=== PATIENT | female | born 1990 | race Caucasian/White ===

== ENCOUNTER 2020-10-07 10:56 | Outpatient (CLI) | payer OTHER, SELFPAY | END 2020-10-07 10:57 | disposition home or self-care (01) | LOC: ANHCOVIDVC 10:57 | PROVIDERS: PCP Internal Medicine | DX: Z23 Encounter for immunization (principal) | CPT/HCPCS: 0001A; 91300 ==

== ENCOUNTER 2020-10-28 10:02 | Outpatient (CLI) | payer OTHER, SELFPAY | END 2020-10-28 10:03 | disposition home or self-care (01) | LOC: ANHCOVIDVC 10:02 | PROVIDERS: PCP Internal Medicine | DX: Z23 Encounter for immunization (principal) | CPT/HCPCS: 0002A; 91300 ==

== ENCOUNTER 2024-08-11 11:14 | Emergency (ER) | payer OTHER, SELFPAY ==
[2024-08-11 11:36] VITALS: BP 142/91; PULSE 98; RESP 16; TEMP 36.5; O2SAT 99
[2024-08-11 11:39] LABS: EDUAAPPEAR Cloudy; EDUABILI Negative (Negative); EDUABLOOD 3+ (Negative); EDUACOLOR1 Yellow; EDUAGLUCOSE Negative (Negative); EDUAKETONE Negative (Negative); EDUALEUKO 3+ (Negative); EDUANITRATE Negative (Negative); EDUAPROTEIN 1+ (Negative); EDUAUROBILI 0.2
--- NOTE | 2024-08-11 11:50 | ED.FEMALEGU ---
HPI - Female Genitourinary General Chief complaint: Urogenital-Female Stated complaint: urinary issue Time Seen by Provider: 08/11/24 11:50 Source: patient Mode of arrival: ambulatory Limitations: no limitations History of Present Illness HPI Narrative: 34-year-old female presents with complaint of urinary frequency, urgency, low back pain for 2-3 days. Afebrile. Denies nausea vomiting. All systems reviewed and negative except as noted above. Related Data Home Medications ?Medication ?Instructions ?Recorded ?Confirmed ?Last Taken ?Type glycopyrrolate 2 mg tablet 2 mg PO BID 05/29/24 08/11/24 Unknown History levonorgestrel-ethinyl estradiol 1 tablet PO DAILY 05/29/24 08/11/24 Unknown History 0.1 mg-20 mcg tablet (Lessina) metformin 500 mg tablet 500 mg PO BID 05/29/24 08/11/24 Unknown History spironolactone 100 mg tablet 100 mg PO DAILY 05/29/24 08/11/24 Unknown History Allergies Allergy/AdvReac Type Severity Reaction Status Date / Time No Known Allergies Allergy Unverified 08/11/24 11:16 Review of Systems Review of Systems: CONSTITUTIONAL: Denies fever, chills, or sweats. EYES: Denies visual changes, redness, or discharge. ENT: Denies rhinorrhea, congestion, sore throat, or otalgia. CARDIOVASCULAR: Denies chest pain, palpitations, or edema. RESPIRATORY: Denies cough or dyspnea. GASTROINTESTINAL: Denies abdominal pain, nausea, vomiting, or diarrhea. GENITOURINARY: Reports dysuria, frequency, urgency. Denies hematuria. SKIN: Denies rash or itching. MUSCULOSKELETAL: Denies back pain, joint pain, or myalgia. NEUROLOGIC: Denies headache, numbness, or weakness. PSYCHIATRIC: Denies anxiety or depression. All other systems reviewed are negative, except as documented in HPI. [facility] Past Medical History Medical History Pre-diabetes Hyperthyroidism PCOS (polycystic ovarian syndrome) Surgical History Surgical History History of splenectomy History of tonsillectomy Social History Social History Smoking status: Current every day smoker Tobacco type: e-cigarettes/vaping Alcohol intake: never Substance use: current Substance use type: marijuana Do You Feel Safe in your Home?: Yes Lack of Transportation: No Lack of Food: Never True Current Housing: I Have Housing Concerned About Future Housing: No Difficulty Paying Gas/Electric Bills: No Difficulty Paying for Meds: No Currently Unemployed: YES Education: Associate Degree Difficulty w/ Childcare or Family Care: No Comments At time of signature, agree with nursing past medical, surgical, social and family history. There is no relevant family history pertinent to the presenting complaint. Exam Narrative: GENERAL: This is a well-nourished, well-developed patient, in no apparent distress. HEAD: normocephalic, atraumatic. EYES: PERRL. Sclera clear/white. Vision is grossly intact. EARS: External ears normal NOSE: External nose normal NECK: Neck supple, non-tender without lymphadenopathy, masses or thyromegaly. CARDIOVASCULAR: Regular rate and rhythm without murmurs, gallops, or rubs. RESPIRATORY: Clear to auscultation. Breath sounds equal bilaterally. No wheezes, rales, or rhonchi. SKIN: warm, Dry, intact with no suspicious lesions or rash, good texture and turgor. NEURO: awake, alert, and oriented to person, place and time. There were no obvious focal neurologic abnormalities. EXTREMITIES: No joint tenderness, effusion, or edema noted. Course Course Level of Care: Express Care Visit Vital Signs Vital signs: Vital Signs Temperature 36.5 C 08/11/24 11:36 Pulse Rate 98 08/11/24 11:36 Respiratory Rate 16 08/11/24 11:36 Blood Pressure 142/91 H 08/11/24 11:36 Pulse Oximetry 99 08/11/24 11:36 Oxygen Delivery Room Air 08/11/24 11:36 Temperature 36.5 C 08/11/24 11:36 Pulse Rate 98 08/11/24 11:36 Respiratory Rate 16 08/11/24 11:36 Blood Pressure 142/91 H 08/11/24 11:36 Pulse Oximetry 99 08/11/24 11:36 Oxygen Delivery Room Air 08/11/24 11:36 reviewed MDM - Female Genitourinary MDM Narrative Medical decision making narrative: urinalysis positive leukocytes, positive blood. Will treat patient with antibiotic due to urinary symptoms. Patient is alert, nontoxic. Urine culture ordered. Please be advised this is a medical document. It is intended for zxdd-[id number] communication. It is written in medical language and may contain unfamiliar abbreviations or verbiage. Medical documents are intended to carry relevant information, facts as evident, and the clinical opinion of the practitioner at the time of the encounter. This report may have been done utilizing a voice recognition system. Attempts have been made to correct errors. However, there may be uncorrected grammatical, spelling, and recognition errors present. The file time of this note does not necessarily represent the time of service. Lab Data Labs: Lab Results 08/11/24 Range/Units 11:35 POC Urine Color Yellow POC Urine Clarity Cloudy POC Urine pH 6.0 POC Ur Specif [place] 1.010 POC Urine Protein 1+ (Negative) POC Ur Glucose (UA) Negative (Negative) POC Urine Ketones Negative (Negative) POC Urine Blood 3+ (Negative) POC Urine Nitrite Negative (Negative) POC Urine Bilirubin Negative (Negative) POC Urine Urobilinogen 0.2 POC U Leukocyte Esteras 3+ (Negative) Discharge Plan Discharge Clinical Impression: Urinary tract infection Qualifiers: Urinary tract infection type: site unspecified Hematuria presence: with hematuria Qualified Code(s): N39.0 - Urinary tract infection, site not specified Patient Disposition: Home, Self-Care Condition: Stable Instructions: Antibiotic Form, Urinary Tract Infection in Women (ED) Additional Instructions: take antibiotic as prescribed until gone. May take [id number] azo to treat urinary symptoms. Take as directed on packaging. Drink at least 64 oz water a day. Follow-up with your doctor if symptoms are not improving. Patient Language: Lao Prescriptions: New amoxicillin-pot clavulanate [Augmentin] 500-125 mg tablet 1 tablet PO BID 5 Days Qty: 10 0RF No Action metformin 500 mg tablet 500 mg PO BID levonorgestrel-ethinyl estrad [Lessina] 0.1-20 mg-mcg tablet 1 tablet PO DAILY spironolactone 100 mg tablet 100 mg PO DAILY glycopyrrolate 2 mg tablet 2 mg PO BID Follow-up/Referrals: PHYSICIAN,STRIPPING MACHINE OPERATOR [Primary Care Provider] - Time of Disposition: 11:54
== END 2024-08-11 12:00 | disposition home or self-care (01) ==
PROVIDERS: Emergency Provider Nurse Practitioner Family
DX: N39.0 Urinary tract infection, site not specified (principal); E05.90 Thyrotoxicosis, unspecified without thyrotoxic crisis or storm; R73.03 Prediabetes; E28.2 Polycystic ovarian syndrome; F17.290 Nicotine dependence, other tobacco product, uncomplicated; F12.90 Cannabis use, unspecified, uncomplicated
CPT/HCPCS: 81003; 87086; 99213; G0463

== ENCOUNTER 2024-11-09 09:00 | Outpatient (RCR) | payer OTHER, SELFPAY ==
--- NOTE | 2024-10-10 10:01 | OPREHPOC ---
Outpatient Therapy Plan of Care This is a Multidisciplinary Plan of Care that may contain components documented by all disciplines (PT, OT, and ST.) PT Problem 1 PT Problem #1 Knowledge Deficit PT Goal 1 Goal / Goal Update *independent with HEP Target Visit 8 PT Problem 2 PT Problem #2 Pain PT Goal 1 Goal / Goal Update * pt report pain at worst rating of L knee 4/10 Target Visit 8 PT Goal 2 Goal / Goal Update * pt report tolerance with standing/walking of 2 hours Target Visit 8 PT Problem 3 PT Problem #3 Impaired Flexibility PT Goal 1 Goal / Goal Update *increase flexibility of anterior hip/quads to decrease machine puller over patella prone knee flexion to 120' 1* R 2* L Target Visit 8 PT Problem 4 PT Problem #4 Impaired Strength PT Goal 1 Goal / Goal Update increase strength of R and L hip adduction to 5/ 5 improve patellar tracking Target Visit 8
--- NOTE | 2024-10-10 10:01 | PTOPEVAL1 ---
Assessment and note entered by Lizeth Braga, PT Evaluation Information Assessment Status Evaluation ICD-10 Condition Codes (PT) Pain in right knee M25.561,Pain in left knee M25. 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; had injections bilateral knees-increased pain started taking meloxicam--helping pain; wants her to have MRI, but have to have therapy first activity: not working outside of home; have been doing [employer] water exercises--made little worse; independent with home and self care tasks, require rest breaks about 1-2 hours of activity; Reported Pain Level Pain Score Self Report Additional Pain Score Comments pain range of the past week: L 0-7/10 and R 0-3/ 10; annoying pain, pops in knee and if get knee cap to move right- feels better increase pain: activity/walking ~ 1-2 hours decrease pain: sit, meloxicam, heat, ice walking down stairs at home, that are narrow, turn legs out Assessment PT Clinical Summary Katie has the diagnosis of R and L knee pain. She has chronic issues with bilateral knee pain and has never had PT treatments. LE functional scale self rating of 44% limitation in activity level. Reported time of walking/standing of 1-2 hours on her feet. She has tried more fitness exercises and aquatic classes, but knees more painful after. The meloxicam has helped decrease her pain. With the evaluation: she has good strength of bilateral hips and knees, with slight tightness of anterior hip/quad muscles; lateral tracking of both patella and stands with hyper extension of knees. Skilled PT services are indicated for treatment of patellar-femoral pain: improve patellar tracking with improve flexibility of anterior hip/quads, increase hip adduction strength, modalities PRN and education for HEP and pain management. Plan of Care Interventions Electrical Stimulation,Hot Pack/Cold Pack,Manual Therapy,Neuro Re-education,Patient/Caregiver Education,Therapeutic Activities,Therapeutic Exercise,Ultrasound,Other Other Interventions taping PT Services Indicated Yes Treatment Frequency and 1-2x/wk for 8 visits Duration These treatments will address the objective and functional deficits as defined above. The patient will be advanced safely and appropriately in order for the patient to progress towards his/her prior level of function. Additional exercises will be introduced and as well as a comprehensive home exercise program upon discharge, if needed, to ensure carryover of functional gains achieved in the clinic. This treatment plan has been reviewed and agreement upon by the patient.
--- NOTE | 2024-11-09 09:35 | OPREHPOC ---
Outpatient Therapy Plan of Care This is a Multidisciplinary Plan of Care that may contain components documented by all disciplines (PT, OT, and ST.) PT Problem 1 PT Problem #1 Knowledge Deficit PT Goal 1 Goal / Goal Update *independent with HEP 11-09-24 d/c goal met Target Visit 8 Progress Met PT Problem 2 PT Problem #2 Pain PT Goal 1 Goal / Goal Update * pt report pain at worst rating of L knee 4/10 11-09-24 d/c goal not met, 6/10 at worst Target Visit 8 Progress Not Met PT Goal 2 Goal / Goal Update * pt report tolerance with standing/walking of 2 hours 11-09-24 d/c goal met Target Visit 8 Progress Met PT Problem 3 PT Problem #3 Impaired Flexibility PT Goal 1 Goal / Goal Update *increase flexibility of anterior hip/quads to decrease machine assembler for puller over patella prone knee flexion to 120' 1* R 2* L 11-09-24 d/c goal met Target Visit 8 Progress Met PT Problem 4 PT Problem #4 Impaired Strength PT Goal 1 Goal / Goal Update increase strength of R and L hip adduction to 5/ 5 improve patellar tracking 11-09-24 d/c goal met Target Visit 8 Progress Met
--- NOTE | 2024-11-09 09:35 | PTOPDC ---
Assessment and note entered by Lizeth Braga, PT Assessment Status Discharge ICD-10 Condition Codes (PT) Pain in right knee M25.561,Pain in left knee M25. 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; had injections bilateral knees-increased pain started taking meloxicam--helping pain; wants her to have MRI, but have to have therapy first activity: not working outside of home; have been doing [employer] water exercises--made little worse; independent with home and self care tasks, require rest breaks about 1-2 hours of activity; Reported Pain Level Pain Score Self Report Additional Pain Score Comments pain range in the past week 0-6/10 of L medial knee- popping; R knee no pain; increase pain: stairs reported tolerance with standing/ walking 2-3 hours decrease pain: leukotape, avoid hyper extending my knees/locking out knees; meloxicam Assessment PT Clinical Summary Katie has received 8 PT sessions. She has improved in all areas: pain rating R knee 0/10 and L 0-6/10; self assessment with LE functional scale of 36% limitation in activity; increase flexibility of bilateral anterior hip and quad to 120' with prone knee flexion; increase strength of hips and knees; education completed for HEP and body posture. The goals were partially met. Discharge PT. She is to continue with her HEP. Plan of Care PT Services Indicated No
== END 2024-11-09 12:29 | disposition home or self-care (01) ==
LOC: ANHPT 09:00
PROVIDERS: PCP Physician Assistant
DX: M25.562 Pain in left knee (principal); M25.561 Pain in right knee
CPT/HCPCS: 97110; 97161; 97530

== ENCOUNTER 2025-02-22 11:54 | Outpatient (CLI) | payer OTHER, SELFPAY ==
--- OUTSIDE RECORDS SUMMARY | 2020-06-03 13:15 | XMS_ITS | Continuity of Care Document ---
Author Organization [facility] Address [address] [facility] [place] [address] Phone Care Team Providers Care Logging Engineer Name Role Phone Alden Fairchild MD Unavailable Unavailable Allergies, Adverse Reactions, Alerts Substance Reaction Status Criticality No Known Allergies Active No Inform ation Medications Medication Instructions Dosage Effective Dates (start - stop) Status Comments Effexor XR 150 mg capsule,extended release take 1 capsule by oral route every day 150 MG - Active spironolactone 100 mg tablet take 1 tablet by oral route every day 100 MG - Active Trileptal 300 mg tablet take 1 tablet by oral route 2 times every day 300 MG - Active avoid driving or operate machines Payton 3 mg-0.03 mg tablet take 1 tablet by oral route every day 1.00 tablet - Active Procedures Procedure Date PREV VISIT, EST, AGE 18-39 OFFICE/OUTPATIENT VISIT, EST OFFICE/OUTPATIENT VISIT, EST OFFICE/OUTPATIENT VISIT, EST OFFICE/OUTPATIENT VISIT, EST OFFICE/OUTPATIENT VISIT, EST OFFICE/OUTPATIENT VISIT, EST OFFICE/OUTPATIENT VISIT, EST OFFICE/OUTPATIENT VISIT, EST OFFICE/OUTPATIENT VISIT, EST PREV VISIT, NEW, AGE 18-39 Advance Directives Directive Yes / No Effective Date File Name No Information Encounters Encounter Description Practice Location Reason(s) For Visit Diagnoses Date Provider Providers Copied on Encounter [facility], [facility] [place] [id number], [place] tel:[phone] [facility] No Information 0 Gurinder Ruano. [address], [place], [place], [address] , [place]. [phone] Referring Provider: Beverly Bhardwaj [address], [place], [place], [address]. tel:[phone] PREV VISIT, EST, AGE 18-39 [facility], [address], [place], [place], [address], [place] tel:[phone] [facility] physical (chief complaint) Encntr for general adult medical exam w/o abnormal findings 0 Gurinder Ruano. [address], [place], [place], [address] , [place]. [phone] Referring Provider: Beverly Bhardwaj [address], [place], [place], [address]. tel:[phone] OFFICE/OUTPA TIENT VISIT, EST [facility], [address], [place], [place], [address], [place] tel:[phone] [facility] sore throat1 (chief complaint) obesity1 (chief complaint) ObesityAcute pharyngitis, unspecified [address] Gur[address], [place], [place], [address] , [place]. [phone] Referring Provider: Beverly Bhardwaj [address], [place], [place], [address]. tel:[phone] OFFICE/OUTPA TIENT VISIT, EST [facility], [address], [place], [place], [address], [place] tel:[phone] [facility] PCOS1 (chief complaint) sinus1 (chief complaint) depression 1 (chief complaint) fatigue1 (chief complaint) obesity1 (chief complaint) Generalized Anxiety DisorderHirsutismFa tigueObesityAcute sinusitis 9 Gurinder Hirsch [address], [place], [place], [address] , [place]. tel:[phone] Referring Provider: Beverly Bhardwaj [address], [place], [place], [address]. tel:[phone] OFFICE/OUTPA TIENT VISIT, [facility], [address], [place], [place], [address], [place] [phone] [facility] amenorrhea 1 (chief complaint) anxiety1 (chief complaint) fatigue1 (chief complaint) AmenorrheaDepressio nHirsutismSleep apnea 9 Gurinder Ruano. [address], [place], [place], [address] , [place]. [phone] Referring Provider: Beverly Bhardwaj [address], [place], [place], [address]. tel:[phone] OFFICE/OUTPA TIENT VISIT, [facility], [address], [place], [place], [address], [place] [phone] [facility] anxiety1 (chief complaint) hirtusium1 (chief complaint) HirsutismDepression ObesityFatigueAmeno rrheaFolate deficiency 9 Gurinder Ruano. [address], [place], [place], [address] , [place]. [phone] Referring Provider: Beverly Bhardwaj [address], [place], [place], [address]. tel:[phone] OFFICE/OUTPA TIENT VISIT, [facility], [address], [place], [place], [address], [place] tel:[phone] [facility] anxiety1 (chief complaint) sleep anpea1 (chief complaint) T (chief complaint) Body mass index (BMI) 40.0-44.9, adultSleep apneaHirsutismGener alized Anxiety Disorder 9 Gurinder Ruano. [address], [place], [place], [address] , [place]. tel: [phone] Referring Provider: Beverly Bhardwaj [address], [place], [place], [address]. tel:[phone] OFFICE/OUTPA TIENT VISIT, [facility], [address], [place], [place], [address], tel:[phone] [facility] anxiety1 (chief complaint) hirsutism1 (chief complaint) folic1 (chief complaint) sleep apnea1 (chief complaint) Folate deficiencyHirsutism Sleep apneaDepressionBody mass index (BMI) 40.0-44.9, adult 0 9 Gurinder Ruano. [address], [place], [place], [address] , [place]. tel:[phone] Referring Provider: Beverly Bhardwaj [facility] [address], [place], [place], [address]. tel:[phone] OFFICE/OUTPA TIENT VISIT, [facility], [address], [place], [place], [address], [place] tel:[phone] [facility] hirsutism1 (chief complaint) anxiety1 (chief complaint) platelet1 (chief complaint) folate1 (chief complaint) sick1 (chief complaint) HirsutismFolate deficiencyEssential thrombocytosisDepre ssionAcute upper respiratory infection, unspecifiedHypergly cemia 8 Gurinder Ruano. [address], [place], [place], [address] , [place]. tel:[phone] Referring Provider: Beverly Bhardwaj [facility] [address], [place], [place], [address]. tel:[phone] OFFICE/OUTPA TIENT VISIT, [facility], [address], [place], [place], [address], [place] tel:[phone] [facility] high T (chief complaint) anxiety1 (chief complaint) platelet1 (chief complaint) fatigue1 (chief complaint) HirsutismEssential thrombocytosisFatig ueFolate deficiencyDepressio n 8 Gurinder Hirsch [address], [place], [place], [address] , [place]. [phone] Referring Provider: Beverly Bhardwaj [address], [place], [place], [address]. tel:[phone] OFFICE/OUTPA TIENT VISIT, EST [facility], [address], [place], [place], [address], [place] tel:[phone] [facility] fatigue1 (chief complaint) folate1 (chief complaint) platelet1 (chief complaint) hitritism1 (chief complaint) depression 1 (chief complaint) FatigueHyperlipidem iaEssential thrombocytosisFolat e deficiencyPolycysti c ovarian syndromeDepression Feb- 8 Gurinder Ruano. [address] [facility] [address], [place], [place], [address] , [place]. tel:[phone] Referring Provider: Beverly Bhardwaj [facility] [address], [place], [place], [address]. tel:[phone] PREV VISIT, NEW, AGE 18-39 [facility], [facility] [address], [place], [place], [address], [place] tel:[phone] [facility] Physical (chief complaint) Encntr for general adult medical exam w/o abnormal findingsAmenorrheaC ellulitis of right lower limbFatigueBody mass index (BMI) 39.0-39.9, adult Jan- 8 Gurinder Ruano. [address], [place], [place], [address] , [place]. tel:[phone] Referring Provider: Beverly Bhardwaj [address] [facility] [address], [place], [place], [address]. tel:[phone] Family History Family Member Type Diagnosis Age At Onset Brother Problem (finding) Alive and well Mother Problem (finding) unknown Father Problem (finding) Diabetes mellitus type 2 Payers Payer name Insurance type Covered green party ID Authoriza tion(s) No Information Social History Type Description Quantity Date Captured Comments Alcohol Use Details Unknown Caffeine Use Details Unknown Tobacco Use Status No Information Smoking Status No Information Sex Female Chief Complaint And Reason For Visit No Information Plan Of Treatment Date Type Action Status Goal Special diet education compl eted Goal Tobacco cessation counseling completed Goal Tobacco cessation counseling completed Goal Special diet education compl eted Goal Tobacco cessation counseling completed Goal Special diet education compl eted Goal Tobacco cessation counseling completed Goal Special diet education compl eted Goal Special diet education compl eted Goal Tobacco cessation counseling completed Goal Tobacco cessation counseling completed Goal Special diet education compl eted Goal Special diet education compl eted Goal Tobacco cessation counseling completed Goal Special diet education compl eted Goal Special diet education compl eted Goal Special diet education compl eted Referral Ordered: Surgery (related to Obesity) ordered Referral Ordered: Referrals: Surgery. Evaluate and treat ordered Referral Ordered: Pulmonology (related to Sleep apnea) ordered Referral Ordered: Referrals: Pulmonology. Evaluate and treat ordered Referral Ordered: Psychiatry (related to Depression) ordered Referral Ordered: Referrals: Psychiatry. Evaluate and treat ordered Referral Ordered: Hematology (related to Essential thrombocytosis) ordered Referral Ordered: Referrals: Hematology. Evaluate and treat ordered Referral Ordered: SLEEP STUDY, ATTENDED ordered Referral Ordered: US, PELVIC (NONOBSTETRIC); ordered History Of Present Illness Encounter Date Complaint History Of Prese nt Illness physical Pt needs annual physical pt has anxiety and depression Pt has mood swings Pt takes effexor and trileptal and doing ok Pt denies any suicidal or homicidal thought Pt denies any crying spells Pt has high T and hirsutism. Pt is taking spironolactone. Pt denies any chest pain or headache Pt has not done lab yet. pt denies any other complaints sore throat1 Pt c/o sore thro at for almost one month ,Pt has mild ear pain with mild sinus drainage and congestion. pt has mild dry cough. Pt denies any headache and fever pt denies any GERD. Pt notice throat pain with swallowing. Pt denies fever, or recent travel obesity1 Pt is obese Pt c ould not afford phentermine. fatigue1 Patient complain ing of chronic fatigue. Sleeps physician does not take insurance. Patient negative home sleep study. sinus1 Patient complain s of sinus congestion, purulent sinus drainage, sinus pain, ear pain, sore throat, mild cough, for 1 week. Patient denies any fever or chills. Patient denies any sick contact. obesity1 Pt is obese. Marlin dave wants to try weight loss medication. depression1 Patient is curre nt anxiety and depression. Patient has mood swing Patient doing okay with Effexor and trileptal. Her mood is stable. Patient denies any suicidal or homicidal thought. Patient denies any crying spells. PCOS1 Pt has PCOS rela harsha symptoms. Pt has amenorrhea, hirsutism and high T. Pt has been taking spironolactone and she started to have period monthly now. Her T level is ok now with spironolactone. her hirsutism also improving amenorrhea1 Pt has amenorrhe a. Pt has not had period for 3 months. Pt is taking spironolactone and her T level is getting lower. her KCL is ok. Pt has some excessive hair around chin and she has noticed much improvement on that. anxiety1 Pt has chronic a nxiety and depression. Pt has mood swings pt takes effexor 150 mg daily. Pt states that it helps slightly but she has frequent mood swings with depressive episodes. Pt states that 2-3 per week without any reason. pt has frequent crying spells Pt states that Seroquel completely knocks her out and she feels drowsy the next day so she could not tolerate it. pt stopped seroquel after two days fatigue1 Pt has fatigue. Pt did home sleep study which did not show sleep apnea Huntington score is 13. She needs in lab study. Insurance has not approved it yet hirtusium1 Pt has high T an d hirsutism. Pt has irregular period. Pt has not had any period for 6 weeks. Pt just had nexplanon removed 8 months ago. Pt is not sexually active. Pt denies any chance for anxiety1 Pt has chronic a nxiety and depression Pt is on effexor 150 mg daily Pt states that she feels overall better but she still fels depressed and down most of the time. pt still feels sad most of the days without any reason. Pt has a lot of mood swings. Pt denies any suicidal or homicidal thought. pt has a lot of anxiety and also insomnia as well. pt feels very fatigue. Pt has not heard from sleep study yet T Pt has high T an d mild hirsutum Pt is tolerating spironolactone. Pt denies any chest pain or headache Pt denies any palpitation Pt has not notice much improvement of extra hair sleep anpea1 Pt had home slee p study done which showed sleep related hypoxemia Pt feels fatigue. pt denies any chest pain or headache Pt has not done in lab study yet. Pt does snore Pt denies stop breathing at night anxiety1 Pt has anxiety a nd depression, Pt notices much improvement with effexor Pt denies any side effects Pt denies any crying spells. Pt feels better mood and more motivated Pt feels less overwhelmed. Pt denies any suicidal or homicidal thought folic1 Pt stopped folic acid for a while and she just restarted folic now hirsutism1 Pt has hirsutism and high T Pt stopped taking spironolactone for a while and she just restarted spironolactone two weeks ago. anxiety1 Pt has chronic s evere anxiety and depression Pt stopped taking all meds on her own for a while. Pt states that paxil does not help so she is not taking it. Pt has frequent crying spells. Pt feels depressed and she does not have any motivation or interests in any activity Pt denies any suicidal or homicidal thought Pt just stays home and cries all the time Pt denies any domestic violence sleep apnea1 Pt has sleep rel ated hypoxia but she has not done in lab sleep study yet. Pt does snore and she feels fatigue sick1 Pt c/o severe si nus congestion, purulent sinus drainage, mild sore throat, headache, productive coughing for one week Pt denies any sob or chest pain Pt denies any fever Pt failed OTC meds folate1 Pt has low folat e. Pt is on folic acid supplement. platelet1 Pt has high plat elet. Pt just seen hematology and was told it is due to lack of spleen. Pt denies any bleeding anxiety1 Pt has chronic a nxiety and depression .Pt doing much better with paxil .Pt denies any suicidal or homicidal thought. Pt denies any crying spells hirsutism1 Pt has hirsutism . Pt has high T. Pt has been taking spironolactone for 4 weeks. Pt notices improving of hair growth. Pt denies any palpitation, chest pain, headache high T Pt has high T an d she has hirsutism. Pt has irregular period. Pt has frequent amenorrhea. Pt had period last month Pt just started OCP last month by [facility] anxiety1 Pt has chronic a nxiety and depression Pt started celexa last month and she notices frequent urination at night since taking celexa. Her mood seems better Pt denies any suicidal or homicidal thought Pt denies any crying spells platelet1 Pt has thrombocy tosis. Pt denies any bruising. fatigue1 Pt feels fatigue Pt had home sleep study which showed hypoxia but not enough for sleep apnea. Pt will do inlab study depression1 Pt has anxiety a nd depression chronically Pt denies any suicidal or homicidal thought Pt has frequent crying spells pt has poor motivation hitritism1 Pt has history o f irregular period with frequent amenorrhea. Pt has some excessive hair around chin. Pt does plunking all the time. platelet1 Pt has mildly hi gh platelet Pt denies any bleeding or bruising folate1 Pt has low folat e. Pt does eat green leafy vegetables. Pt feels fatigue Pt denies any numbness or tingling fatigue1 Pt has fatigue a ll the time Pt denies any sob Pt states that she feels she can sleep all the time Pt wakes up in the morning feeling tired. Pt not sure if she snores at night. Pt denies any trouble with breathing while asleep. Physical Pt needs annual physical. Pt recently was admitted to hospital for cellulitis right leg with leukocytosis. her blood cx was negative pt denies any injury or bite. Pt denies any fever. Pt denies any calf pain Pt was on Zosyn and also PO augmentin Pt just finished augmentin. The right leg rash and warmth resolved pt notices mild right leg swelling, She also has left leg swelling but not as bad. Pt also feels fatigue and with mild depressed mood for the past year Pt denies any suicidal or homicidal thought. Pt denies any chest pain or sob Pt is on nexplaon for 3 years. Pt just stopped period 3 months ago for unknown reason. Pt c/o vaginal yeast infection since on abx pt denies any pelvic pain Instructions Date Instruction Additional Infor mation Weight management Related to Obe sity Special diet education Related t o Body mass index (BMI) 40.0-44.9, adult Special diet education Related t o Body mass index (BMI) 40.0-44.9, adult Increase physical activity Relat ed to Generalized Anxiety Disorder Weight management Related to Gen eralized Anxiety Disorder Special diet education Related t o Body mass index (BMI) 40.0-44.9, adult Increase physical activity Relat ed to Amenorrhea Weight management Related to Henny norrhea Special diet education Related t o Body mass index (BMI) 40.0-44.9, adult Increase physical activity Relat ed to Hirsutism Weight management Related to Hir sutism Weight management Related to Sle ep apnea Increase physical activity Relat ed to Sleep apnea Special diet education Related t o Body mass index (BMI) 40.0-44.9, adult Increase physical activity Relat ed to Sleep apnea Weight management Related to Sle ep apnea Special diet education Related t o Body mass index (BMI) 40.0-44.9, adult Weight management Related to Fol ate deficiency Increase physical activity Relat ed to Folate deficiency Special diet education Related t o Body mass index (BMI) 39.0-39.9, adult Special diet education Related t o Body mass index (BMI) 39.0-39.9, adult Increase physical activity Relat ed to Hirsutism Quit smoking Related to Hirsu tism Weight management Related to Hir sutism Increase physical activity Relat ed to Fatigue Weight management Related to Fat igue Special diet education Related t o Body mass index (BMI) 39.0-39.9, adult Special diet education Related t o Body mass index (BMI) 39.0-39.9, adult Perform monthly self breast examinations. Related to Encntr for general adult medical exam w/o abnormal findings Quit smoking. Related to Encnt r for general adult medical exam w/o abnormal findings Increase activity. Related to En cntr for general adult medical exam w/o abnormal findings Assessments Type Assessment Date No Information
--- NOTE | ~2025-02-22 | US_ITS ---
EXAMINATION: US pelvic complete w TV DATE: 02/22/2025 13:09 INDICATION: Pelvic pain. TECHNIQUE: Multiple transabdominal and transvaginal sonographic images of the pelvis were obtained. COMPARISON: Ultrasound 03/21/2018 FINDINGS: TRANSABDOMINAL ULTRASOUND: The uterus measures 7.5 x 3.5 x 4.1 cm. There is no free fluid in the pelvis. TRANSVAGINAL ULTRASOUND: The endometrial complex measures 4 mm in thickness. There is a 1.6 cm subserosal fibroid. There are nabothian cysts in the cervix. The right ovary measures 2.9 x 1.8 x 2.7 cm. The left ovary measures 2.4 x 1.3 x 2.7 cm. There is normal vascular flow in the ovaries. IMPRESSION: 1. Uterine fibroid. Reviewed, dictated and finalized at location E. IMPRESSION: 1. Uterine fibroid.
--- OUTSIDE RECORDS SUMMARY | 2025-02-22 11:58 | XMS_ITS | Clinical Summary ---
Author Organization [address] Address [address] [place] [address] Care Team Providers Care Explosive Operator Grenade Name Role Phone Ashanti Ceron Primary Care Provider [phone] Allergies No known active allergies Medications glycopyrrolate (ROBINUL) 2 mg tabletIndications: Primary focal hyperhidrosis Take 1 tablet (2 mg total) by mouth 2 (two) times a day 60 tablet 11 5 Active metroNIDAZOLE (METROCREAM) 0.75 % creamIndications:A cne Rosacea Apply topically 2 (two) times a day To face 45 g 6 5 09/15/19 26 Active levonorgestreL-eth inyl estrad (LUTERA) 0.1-20 mg-mcg per tablet Take 1 tablet by mouth daily Active metFORMIN (FORTAMET) 500 mg 24 hr tablet Take 2 tablets (1,000 mg total) by mouth 2 (two) times a day with meals Active spironolactone (ALDACTONE) 100 mg tablet Take 1 tablet (100 mg total) by mouth 2 (two) times a day Active atorvastatin (LIPITOR) 10 mg tablet Take 1 tablet (10 mg total) by mouth daily Active ibuprofen (ADVIL,MOTRIN) 400 mg tablet Take 1 tablet (400 mg total) by mouth every 6 (six) hours as needed for pain Active meloxicam (MOBIC) 7.5 mg tabletIndications: Chronic pain of left knee Take 1 tablet (7.5 mg total) by mouth daily 30 tablet 1 5 Active Active Problems No known active problems Social History Tobacco Use Types Packs/Day Years Used Date Smoking Tobacco: Every Day Vaping Smokeless Tobacco: Never Tobacco Cessation:Ready to Q uit: Not Asked; Counseling Given: Not Answered Passive Exposure Comments:Former cigarettes x20 qd for 10 years Comments Unknown Sex and Gender Information Value Date Recorded Sex Assigned at Not on file Legal Sex Female 12:15 PM MARKETING DIRECTOR Gender Identity Female 09/10/2022 9:59 AM CDT Sexual Orientation Not on file Obstetrics History Last Filed Vital Signs Vital Sign Reading Time Taken Comments Blood Pressure - - Pulse - - Temperature - - Respiratory Rate - - Oxygen Saturation - - Inhaled Oxygen Concentration - - Weight 134.3 kg (296 lb) 09/20/2024 10:36 AM CDT Height 168.9 cm (5' 6.5) 09/20/2024 10:36 AM CD T Body Mass Index 47.06 09/20/2024 10:36 AM CDT Plan of Treatment Health Maintenance Due Date Last Done Comments Cervical Cancer Screening 1990 Depression Screening 1990 Hepatitis C Screening 1990 DTaP/Tdap/Td Vaccine (1 - Tdap) 2001 Varicella Vaccines (1 of 2 - 13+ 2-dose series) 2003 Hepatitis B Screening 2008 Regular Well Visit/Exam 18-64 2008 Pneumococcal vaccine <65 (1 of 2 - PCV) 2009 HPV Vaccines (1 - 3-dose SCDM series) 2017 Covid-19 Vaccine ( season) 2024 07/15/2021, 10/28/2020, 10/07/2020 Influenza Vaccine (#1) 2025 Insurance [facility] Care Teams Explosive Operator Grenade Relationship Specialty Start Date End Date Ashanti Ceron PA [address] [place] [id number] PCP - General Physician Video Editing Intern 09/12/24
--- OUTSIDE RECORDS SUMMARY | 2025-02-22 11:59 | XMS_ITS | Clinical Summary ---
Author Organization [facility] Address [address] [place] [address] Care Team Providers Care Semiconductor Technician Name Role Phone Rafael Bowman MD Primary Care Provider [phone] [facility],non-owned Affiliates and Associated Physician Practices is amultiple site organization consisting of ambulatory clinics and hospital sitesin [place] and [place]. This disclosure is being madepursuant to the Care Everywhere program and may not contain all information available regarding this patient. Last updated 18.[facility] Social History Tobacco Use Types Packs/Day Years Used Date Smoking Tobacco: Never Assessed Comments Unknown Sex and Gender Information Value Date Recorded Sex Assigned at Not on file Legal Sex Female 5:36 AM PLATE TAKE OUT WORKER Gender Identity Female 07/24/2024 12:34 PM PLATE TAKE OUT WORKER Sexual Orientation Not on file Plan of Treatment Health Maintenance Due Date Last Done Comments HIV SCREENING 2005 HEPATITIS C SCREENING 04/19/2008 DTAP/TDAP/TD VACCINES (1 - Tdap) 2009 HEPATITIS B VACCINE (1 of 3 - 19+ 3-dose series) 2009 HPV VACCINE (1 - 3-dose SCDM series) 2017 DEPRESSION SCREENING 06/20/2024 COVID-19 VACCINE (1 - 2023-2 5 season) 2025 INFLUENZA VACCINE (#1) 2025 ZOSTER VACCINE (1 of 2) 2040 HIB VACCINE Aged Out No longer eligi ble based on patient's age to complete this topic MENINGOCOCCAL (Group B) VACC INE SHARED DECISION-MAKING Aged Out No longer eligibl e based on patient's age to complete this topic MENINGOCOCCAL GROUPS A/C/Y/W VACCINE Aged Out No longer eligible b ased on patient's age to complete this topic PNEUMOCOCCAL VACCINE Aged Out No long er eligible based on patient's age to complete this topic Care Teams Semiconductor Technician Relationship Specialty Start Date End Date Rafael Bowman MD [address] [place] [address] PCP - General Obstetrics and Gynecology 04/21/16
--- OUTSIDE RECORDS SUMMARY | 2025-02-22 11:59 | XMS_ITS | Clinical Summary ---
Author Organization [facility] Address [address] [place] [address] Phone Care Team Providers Care Cart Pusher Name Role Phone Alden Fairchild Primary Care Provider [phone] Allergies No known active allergies Medications spironolactone (ALDACTONE) 50 MG Tablet Take 50 mg by mouth daily. 04/12/2018 Active 07/09 1-20 MG-MCG Tablet Take 1 mg by mouth daily. 03/23/2018 Active atorvastatin (LIPITOR) 10 MG Tablet Take 10 mg by mouth daily. Active glycopyrrolate (ROBINUL) 2 MG Tablet Take 2 mg by mouth. 09/14/2024 Active meloxicam (MOBIC) 7.5 MG Tablet Take 7.5 mg by mouth. 09/20/2024 Active MetFORMIN HCl 500 MG TABLET SR 24 HR Take 1,000 mg by mouth. Active metroNIDAZOLE (METROCREAM) 0.75 % Cream Apply. 09/14/2024 Active Active Problems Problem Noted Date Diagnosed Date Thrombocytosis 05/01/2018 Family History Medical History Relation Name Comments Diabetes Father Cancer Maternal Grandfather Liver Disease Mother Cancer Paternal Grandfather Hypertension Paternal Grandmother Relation Name Status Comments Brother Alive Child Alive Father Alive Maternal Grandfather Mother Alive Paternal Grandfather Paternal Grandmother Sister 1 Alive Sister 2 Alive Sister 3 Alive Social History Tobacco Use Types Packs/Day Years Used Date Smoking Tobacco: Never Smokeless Tobacco: Never Tobacco Cessation:Counseling Given: Not Answered Alcohol Use Standard Drinks/Week Comments Not Currently 0 (1 standard drink = 0.6 oz pur e alcohol) PHQ-2 Answer Date Recorded PHQ-2 Score 10 03/06/2019 Comments No Sex and Gender Information Value Date Recorded Sex Assigned at Not on file Legal Sex Female 1:50 PM CDT Gender Identity Not on file Sexual Orientation Not on file Last Filed Vital Signs Vital Sign Reading Time Taken Comments Blood Pressure 120/80 10/29/2024 1:49 PM CDT Pulse 119 10/29/2024 1:49 PM CDT Temperature 36.7 C (98 F) 10/29/2024 1:49 PM CDT Respiratory Rate 18 10/29/2024 1:49 PM CDT Oxygen Saturation 94% 10/29/2024 1:49 PM CDT Inhaled Oxygen Concentration - - Weight 133 kg (293 lb 3.2 oz) 10/29/2024 1:49 PM CDT Height 167.6 cm (5' 6) 10/29/2024 1:49 PM CDT Body Mass Index 47.32 10/29/2024 1:49 PM CDT Plan of Treatment Upcoming Encounters Date Type Department Care Team (Late st Contact Info) Description 05/01/2025 9:30 AM PROCESS AREA SUPERVISOR Office Visit [facility] [address] [phone] Dima De La Cruz MD [address] [place] [phone] Health Maintenance Due Date Last Done Comments Hepatitis C Virus (HCV) Screening 1990 TdaP Immunization 1990 Hepatitis B Immunization (1 of 3 - 19+ 3-dose series) 2009 Pap Smear 2011 Human Papillomavirus (HPV) Immunization (1 - 3-dose SCDM series) 2017 Cervical Cancer Screening (CCS) 2020 HPV/Cotest 2020 Influenza Immunization (#1) 2025 SARS-COV-2 Immunization ( season) 2025 07/15/2021, 10/28/2020, 10/07/2020 Respiratory Syncytial Virus (RSV) Immunization (Adult) (1 - 1-dose 75+ series) 2065 Meningococcal Immunization (ACWY) Aged Out No longer eligible b ased on patient's age to complete this topic Pneumococcal Immunization Combined Aged Out No longer eligible b ased on patient's age to complete this topic Rotavirus Immunization Aged Out No lo nger eligible based on patient's age to complete this topic Insurance MEDICAID [employer] Care Teams Cart Pusher Relationship Specialty Start Date End Date Alden Fairchild [address] [place] [address] PCP - General Family Medicine 04/19/18
== END 2025-02-22 11:55 | disposition home or self-care (01) ==
PROVIDERS: PCP Physician Assistant
DX: D25.2 Subserosal leiomyoma of uterus (principal); N88.8 Other specified noninflammatory disorders of cervix uteri
CPT/HCPCS: 76830; 76856